=== PATIENT | male | born 1960 | race Caucasian/White ===

== ENCOUNTER 2017-01-17 07:07 | Inpatient (IN) | payer OTHER ==
[2017-01-18] MEDS ORDERED: NOREPINEPHRINE/NS 500 ML IV SCH (10:00)
[2017-01-18] MEDS ORDERED: NOREPINEPHRINE BITARTRATE 16 MG in NS 250 ML IV SCH (10:00)
[2017-01-18] MEDS: D5W 1/2 NS W/ 20 KCl/L 1,000 ML IV SCH ×2 (10:20→16:18)
[2017-01-18 10:21] LABS: ADD MORPH? NO; ADD SCAN? YES; ATYPICAL LYMPHOCYTE FLAG 0 (0-99); FRAGMENT RBC FLAG 0 (0-99); HEMATOCRIT 31.8 % (40.0-51.0); HEMOGLOBIN 10.7 g/dL (13.7-17.5); LIPEMIA HEMOLYSIS FLAG 80 (0-99); MEAN CELL HEMOGLOBIN 32.2 pg (27.9-34.1); MEAN CELL HEMOGLOBIN CONCENTR. 33.6 g/dL (32.4-36.7); MEAN CELL VOLUME 95.8 fL (81.5-99.8); MEAN PLATELET VOLUME 10.6 fL (8.7-11.7); PLATELET CLUMPS FLAG 10 (0-99); PLATELET COUNT 123 10^3/uL (150-400); RED BLOOD CELL COUNT 3.32 10^6/uL (4.40-6.38); RED CELL DISTRIBUTION WIDTH 13.4 % (11.5-15.2)
[2017-01-18 10:22] LABS: IONIZED CALCIUM 1.18 MMOL/L (1.12-1.30)
[2017-01-18 10:25] LABS: LEFT SHIFT FLG 160 (0-99)
[2017-01-18 10:33] LABS: ALANINE AMINOTRANSFERASE 36 IU/L (21-72); ALBUMIN 2.7 g/dL (3.5-5.0); ALKALINE PHOSPHATASE 52 IU/L (38-126); AMYLASE 418 IU/L (30-110); ANION GAP 9 mEq/L (8-16); ASPARTATE AMINOTRANSFERASE 53 IU/L (17-59); BILIRUBIN,TOTAL 0.6 mg/dL (0.1-1.4); BILIRUBIN-CONJUGATED 0.3 mg/dL (0.0-0.5); BILIRUBIN-UNCONJUGATED 0.3 mg/dL (0.0-1.1); CALCIUM 7.5 mg/dL (8.5-10.4); CARBON DIOXIDE 18 mEq/l (22-31); CHLORIDE 118 mEq/L (97-110); CREATININE 1.2 mg/dL (0.7-1.3); GAMMA-GLUTAMYLTRANSFERASE 24 IU/L (10-59); GLOMERULAR FILTRATION RATE > 60; GLUCOSE 153 mg/dL (70-100); LACTATE DEHYDROGENASE 918 IU/L (313-618); MAGNESIUM 1.8 mg/dL (1.6-2.3); POTASSIUM 4.1 mEq/L (3.5-5.2); SODIUM 145 mEq/L (134-144); TOTAL PROTEIN 4.7 g/dL (6.3-8.2)
[2017-01-18 10:43] LABS: INR 1.39 (0.83-1.16)
[2017-01-18 10:44] LABS: CK-MB INTERPRETATION NEGATIVE (NEGATIVE)
[2017-01-18] MEDS: PHENYLEPHRINE HCL 50 MG in D5W 250 ML IV SCH ×2 (10:50→16:18)
[2017-01-18 11:01] LABS: ADD DIFF? YES; SCAN POSITIVE
[2017-01-18 11:06] LABS: PLATELET ESTIMATE DECREASED (ADEQ); STOMATOCYTES 1+
--- NOTE | 2017-01-18 11:29 | CPEKG ---
Heart Rate: 92 RR Interval: 652 P-R Interval: 120 QRSD Interval: 96 QT Interval: 344 QTC Interval: 426 P [place]: 74 QRS [place]: 83 T Wave [place]: 79 EKG Severity - BORDERLINE ECG - EKG Impression: SINUS RHYTHM EKG Impression: PROBABLE LEFT ATRIAL ABNORMALITY EKG Impression: BORDERLINE T ABNORMALITIES, ANT-LAT LEADS Electronically Signed By: Gregorio Tyler 19-Jan-2017 23:00:53
--- NOTE | 2017-01-18 11:31 | POSTOPPROG ---
Post Op Note Date of Operation: 01/18/17 Surgeon: Gus Mccormack Anesthesiologist: none Anesthesia: Other (Specify) (none) Pre-op Diagnosis: Brain Post-op Diagnosis: same Indication: resuscitation Procedure: Femoral A Line, Femoral TLC Findings: good draw/flush TLC, good wave form A sun Inf/Abcess present in the surg proc area at time of surgery?: No
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
[2017-01-18] MEDS ORDERED: NS 500 ML IV ONE ×2 (12:00→13:00)
[2017-01-18 12:02] LABS: COLOR PALE YELLOW; LEUKOCYTE ESTERASE,URINE NEGATIVE (NEGATIVE); NITRITE,URINE NEGATIVE (NEGATIVE)
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
[2017-01-18] MEDS ORDERED: NALOXONE HCL 0.4 MG/ML INJ IVP ONE ×2 (12:30→13:15)
[2017-01-18] MEDS ORDERED: methylPREDNISolone SOD SUCC 2 GM in D5W 100 ML IV ONE (12:30)
[2017-01-18] MEDS ORDERED: VECURONIUM BROMIDE 10 MG VIAL IV ONE (12:30)
[2017-01-18] MEDS ORDERED: NS IVP ONE (13:00)
[2017-01-18] MEDS ORDERED: [UNRECOGNIZED DRUG - REMARK] MISC ONE (13:00)
[2017-01-18] MEDS ORDERED: INSULIN REGULAR HUMAN 100 UNIT/ML IV ONE (13:00)
[2017-01-18] MEDS ORDERED: LEVOTHYROXINE IVP ONE (13:00)
[2017-01-18] MEDS ORDERED: D50W 25 GM/50 ML SYR IVP ONE (13:00)
[2017-01-18] MEDS: LEVOTHYROXINE 200 MCG in NS 500 ML IV SCH ×2 (13:02→19:45)
[2017-01-18] MEDS: IPRATROPIUM/ALBUTEROL 3 ML DEYVIAL IH SCH ×5 (14:01→23:45)
[2017-01-18] MEDS: VASOPRESSIN/DEXTROSE 250 ML IV SCH ×2 (14:04→21:58)
[2017-01-18 15:23] LABS: % IMMATURE GRANULYOCYTES 0.3 % (0.0-1.1); ABSOLUTE IMMATURE GRANULOCYTES 0.02 10^3/uL (0.00-0.10); ADD DIFF? NO; ADD MORPH? NO; ADD SCAN? YES; ATYPICAL LYMPHOCYTE FLAG 0 (0-99); FRAGMENT RBC FLAG 0 (0-99); HEMATOCRIT 30.6 % (40.0-51.0); HEMOGLOBIN 10.3 g/dL (13.7-17.5); LIPEMIA HEMOLYSIS FLAG 80 (0-99); MEAN CELL HEMOGLOBIN CONCENTR. 33.7 g/dL (32.4-36.7); PLATELET CLUMPS FLAG 0 (0-99); PLATELET COUNT 96 10^3/uL (150-400); RED BLOOD CELL COUNT 3.22 10^6/uL (4.40-6.38); RED CELL DISTRIBUTION WIDTH 13.2 % (11.5-15.2)
[2017-01-18 15:31] LABS: LEFT SHIFT FLG 210 (0-99)
[2017-01-18 15:37] LABS: ALKALINE PHOSPHATASE 46 IU/L (38-126); ANION GAP 5 mEq/L (8-16); CALCIUM 7.8 mg/dL (8.5-10.4); CARBON DIOXIDE 18 mEq/l (22-31); CHLORIDE 120 mEq/L (97-110); GLOMERULAR FILTRATION RATE > 60; GLUCOSE 100 mg/dL (70-100); MAGNESIUM 1.8 mg/dL (1.6-2.3); POTASSIUM 3.7 mEq/L (3.5-5.2); SODIUM 143 mEq/L (134-144)
[2017-01-18 15:38] LABS: INR 1.39 (0.83-1.16)
[2017-01-18 15:39] LABS: APTT 30.8 SEC (23.0-38.0)
[2017-01-18 15:52] LABS: SCAN POSITIVE
[2017-01-18 15:56] LABS: PLATELET ESTIMATE DECREASED (ADEQ)
[2017-01-18 16:13] LABS: ALBUMIN 2.5 g/dL (3.5-5.0); BILIRUBIN,TOTAL 0.8 mg/dL (0.1-1.4); BILIRUBIN-CONJUGATED 0.4 mg/dL (0.0-0.5); BILIRUBIN-UNCONJUGATED 0.4 mg/dL (0.0-1.1); TOTAL PROTEIN 4.4 g/dL (6.3-8.2)
[2017-01-18] MEDS ORDERED: POTASSIUM Cl (KCl) 20 MEQ/50 ML BAG IV ONE (16:24)
[2017-01-18] MEDS ORDERED: POTASSIUM Cl (KCl) 50 ML IV ONE (16:30)
[2017-01-18] MEDS ORDERED: MAGNESIUM SULF 1 GM/DEXTROSE 100 ML IV ONE ×2 (16:30→23:00)
[2017-01-18] MEDS ORDERED: SODIUM PHOS 20 MM in D5W 250 ML IV ONE (16:30)
[2017-01-18 16:59] VITALS: RESP 20
[2017-01-18 21:34] LABS: IONIZED CALCIUM 1.18 MMOL/L (1.12-1.30)
[2017-01-18 21:37] LABS: ADD MORPH? NO; ATYPICAL LYMPHOCYTE FLAG 0 (0-99); FRAGMENT RBC FLAG 0 (0-99); HEMATOCRIT 28.6 % (40.0-51.0); HEMOGLOBIN 9.9 g/dL (13.7-17.5); LIPEMIA HEMOLYSIS FLAG 90 (0-99); MEAN CELL HEMOGLOBIN 32.2 pg (27.9-34.1); MEAN CELL HEMOGLOBIN CONCENTR. 34.6 g/dL (32.4-36.7); MEAN CELL VOLUME 93.2 fL (81.5-99.8); MEAN PLATELET VOLUME 11.2 fL (8.7-11.7); PLATELET CLUMPS FLAG 10 (0-99); PLATELET COUNT 88 10^3/uL (150-400); RED BLOOD CELL COUNT 3.07 10^6/uL (4.40-6.38); RED CELL DISTRIBUTION WIDTH 12.9 % (11.5-15.2)
[2017-01-18 21:39] LABS: ADD DIFF? YES; ADD SCAN? NO; LEFT SHIFT FLG 280 (0-99)
[2017-01-18 21:42] LABS: APTT 30.4 SEC (23.0-38.0); INR 1.53 (0.83-1.16); PROTIME(PATIENT) 18.4 SEC (12.0-15.0)
[2017-01-18 21:44] LABS: ALANINE AMINOTRANSFERASE 35 IU/L (21-72); ALBUMIN 2.4 g/dL (3.5-5.0); ALKALINE PHOSPHATASE 38 IU/L (38-126); ANION GAP 8 mEq/L (8-16); ASPARTATE AMINOTRANSFERASE 51 IU/L (17-59); BILIRUBIN,TOTAL 0.5 mg/dL (0.1-1.4); BILIRUBIN-CONJUGATED 0.2 mg/dL (0.0-0.5); BILIRUBIN-UNCONJUGATED 0.3 mg/dL (0.0-1.1); CALCIUM 7.9 mg/dL (8.5-10.4); CARBON DIOXIDE 17 mEq/l (22-31); CHLORIDE 112 mEq/L (97-110); CREATININE 0.9 mg/dL (0.7-1.3); GLOMERULAR FILTRATION RATE > 60; GLUCOSE 261 mg/dL (70-100); MAGNESIUM 1.8 mg/dL (1.6-2.3); POTASSIUM 4.3 mEq/L (3.5-5.2); SODIUM 137 mEq/L (134-144); TOTAL PROTEIN 4.7 g/dL (6.3-8.2)
[2017-01-18] MEDS: methylPREDNISolone SOD SUCC 1 GM in D5W 100 ML IV SCH (21:55)
[2017-01-18 22:19] LABS: COLOR YELLOW; LEUKOCYTE ESTERASE,URINE NEGATIVE (NEGATIVE); NITRITE,URINE NEGATIVE (NEGATIVE)
[2017-01-18 22:22] LABS: BACTERIA TRACE /hpf (NONE SEEN); MUCUS TRACE /lpf (NONE-1+); RBC,URINE 25-50 /hpf (0-3)
[2017-01-18 22:46] LABS: PLATELET ESTIMATE DECREASED (ADEQ)
[2017-01-18] MEDS ORDERED: INSULIN REGULAR HUMAN 100 UNIT/ML IVP ONE (23:00)
[2017-01-18] MEDS ORDERED: SODIUM PHOS IV ONE (23:00)
[2017-01-18] MEDS ORDERED: D5W IV ONE (23:00)
[2017-01-19] MEDS: LEVOTHYROXINE 200 MCG in NS 500 ML IV SCH ×3 (02:34→15:25)
[2017-01-19 03:26] LABS: IONIZED CALCIUM 1.15 MMOL/L (1.12-1.30)
[2017-01-19 03:38] LABS: INR 1.74 (0.83-1.16); PROTIME(PATIENT) 20.4 SEC (12.0-15.0)
[2017-01-19 03:39] LABS: ALANINE AMINOTRANSFERASE 39 IU/L (21-72); ALBUMIN 2.3 g/dL (3.5-5.0); ALKALINE PHOSPHATASE 37 IU/L (38-126); ANION GAP 7 mEq/L (8-16); APTT 30.4 SEC (23.0-38.0); ASPARTATE AMINOTRANSFERASE 41 IU/L (17-59); BILIRUBIN,TOTAL 0.8 mg/dL (0.1-1.4); BILIRUBIN-CONJUGATED 0.3 mg/dL (0.0-0.5); BILIRUBIN-UNCONJUGATED 0.5 mg/dL (0.0-1.1); CALCIUM 7.9 mg/dL (8.5-10.4); CARBON DIOXIDE 18 mEq/l (22-31); CHLORIDE 111 mEq/L (97-110); CREATININE 0.8 mg/dL (0.7-1.3); GLOMERULAR FILTRATION RATE > 60; GLUCOSE 250 mg/dL (70-100); SODIUM 136 mEq/L (134-144); TOTAL PROTEIN 4.5 g/dL (6.3-8.2)
[2017-01-19 03:41] LABS: ADD MORPH? NO; ADD SCAN? YES; ATYPICAL LYMPHOCYTE FLAG 0 (0-99); FRAGMENT RBC FLAG 0 (0-99); HEMATOCRIT 29.2 % (40.0-51.0); HEMOGLOBIN 10.1 g/dL (13.7-17.5); LEFT SHIFT FLG 190 (0-99); LIPEMIA HEMOLYSIS FLAG 90 (0-99); MEAN CELL HEMOGLOBIN 31.6 pg (27.9-34.1); MEAN CELL HEMOGLOBIN CONCENTR. 34.6 g/dL (32.4-36.7); MEAN CELL VOLUME 91.3 fL (81.5-99.8); MEAN PLATELET VOLUME 10.6 fL (8.7-11.7); PLATELET CLUMPS FLAG 0 (0-99); PLATELET COUNT 75 10^3/uL (150-400); RED CELL DISTRIBUTION WIDTH 13.2 % (11.5-15.2)
[2017-01-19 04:03] LABS: COLOR YELLOW; LEUKOCYTE ESTERASE,URINE NEGATIVE (NEGATIVE); NITRITE,URINE NEGATIVE (NEGATIVE)
[2017-01-19] MEDS: IPRATROPIUM/ALBUTEROL 3 ML DEYVIAL IH SCH ×5 (04:05→20:26)
[2017-01-19 04:07] LABS: BACTERIA TRACE /hpf (NONE SEEN); MUCUS TRACE /lpf (NONE-1+)
[2017-01-19 04:15] LABS: ADD DIFF? YES; SCAN POSITIVE
[2017-01-19 04:20] LABS: PLATELET ESTIMATE DECREASED (ADEQ)
[2017-01-19] MEDS: methylPREDNISolone SOD SUCC 1 GM in D5W 100 ML IV SCH ×2 (04:42→13:45)
[2017-01-19] MEDS ORDERED: INSULIN REGULAR HUMAN 100 UNIT/ML IV ONE ×2 (05:00→10:45)
[2017-01-19 09:09] LABS: IONIZED CALCIUM 1.11 MMOL/L (1.12-1.30)
[2017-01-19 09:11] LABS: ADD MORPH? NO; ADD SCAN? YES; ATYPICAL LYMPHOCYTE FLAG 0 (0-99); FRAGMENT RBC FLAG 0 (0-99); HEMATOCRIT 28.6 % (40.0-51.0); LIPEMIA HEMOLYSIS FLAG 90 (0-99); MEAN CELL HEMOGLOBIN 31.7 pg (27.9-34.1); MEAN CELL VOLUME 90.8 fL (81.5-99.8); MEAN PLATELET VOLUME 10.9 fL (8.7-11.7); PLATELET CLUMPS FLAG 10 (0-99); PLATELET COUNT 71 10^3/uL (150-400); RED BLOOD CELL COUNT 3.15 10^6/uL (4.40-6.38); RED CELL DISTRIBUTION WIDTH 13.6 % (11.5-15.2)
[2017-01-19 09:13] LABS: LEFT SHIFT FLG 190 (0-99)
[2017-01-19] MEDS: D5W 1/2 NS W/ 20 KCl/L 1,000 ML IV SCH (09:18)
[2017-01-19 09:28] LABS: ALANINE AMINOTRANSFERASE 30 IU/L (21-72); ALBUMIN 2.2 g/dL (3.5-5.0); ALKALINE PHOSPHATASE 39 IU/L (38-126); AMYLASE 195 IU/L (30-110); ANION GAP 8 mEq/L (8-16); ASPARTATE AMINOTRANSFERASE 33 IU/L (17-59); BILIRUBIN,TOTAL 0.9 mg/dL (0.1-1.4); BILIRUBIN-CONJUGATED 0.4 mg/dL (0.0-0.5); BILIRUBIN-UNCONJUGATED 0.5 mg/dL (0.0-1.1); CALCIUM 7.3 mg/dL (8.5-10.4); CARBON DIOXIDE 16 mEq/l (22-31); CHLORIDE 112 mEq/L (97-110); CREATININE 0.7 mg/dL (0.7-1.3); GLOMERULAR FILTRATION RATE > 60; GLUCOSE 255 mg/dL (70-100); MAGNESIUM 1.9 mg/dL (1.6-2.3); POTASSIUM 3.9 mEq/L (3.5-5.2); SODIUM 136 mEq/L (134-144); TOTAL PROTEIN 4.3 g/dL (6.3-8.2)
[2017-01-19 09:40] LABS: CK-MB INTERPRETATION POSITIVE (NEGATIVE)
[2017-01-19 09:47] LABS: ADD DIFF? YES; SCAN POSITIVE
[2017-01-19 09:51] LABS: PLATELET ESTIMATE DECREASED (ADEQ); SCHISTOCYTES 1+
[2017-01-19 09:57] LABS: INR 1.77 (0.83-1.16); PROTIME(PATIENT) 20.7 SEC (12.0-15.0)
[2017-01-19] MEDS: VASOPRESSIN/DEXTROSE 250 ML IV SCH ×2 (10:11→15:25)
[2017-01-19] MEDS ORDERED: POTASSIUM Cl (KCl) 100 ML IV ONE (10:30)
[2017-01-19] MEDS ORDERED: K PHOS 10 MMOL in D5W 250 ML IV ONE (10:30)
[2017-01-19] MEDS ORDERED: MAGNESIUM SULF 2 GM/WATER 50 ML IV ONE (10:30)
[2017-01-19] MEDS ORDERED: CALCIUM CHLORIDE 1 GM in D5W 50 ML IV ONE (11:00)
--- NOTE | 2017-01-19 12:20 | ECHO ---
[id number] + + [address] : : [place] [address] : : [phone] + + Adult Echocardiographic Report + + :Name: COTY ZAMARRIPA Study Date: 01/19/2017 09:41 AM : : Hospital Admission Number: [id number] : :: 1960 Gender: Male : :Age: 56 yrs Race: WH : :Reason For Study: Eval LV function : + + MMode/2D Measurements \T\ Calculations IVSd: 0.62 cm LVIDd: 4.7 cmEDV(Teich): 103.5 mlLVLd ap4: 7.8 cm LVPWd: 0.64 cm EDV(MOD-sp4): 73.0 ml LVLs ap4: 6.7 cm ESV(MOD-sp4): 40.0 ml EF(MOD-sp4): 45.2 % SV(MOD-sp4): 33.0 ml Normal Measurement Values: + + :LVIDd (3.5-5.7cm) IVSd (0.6-1.1cm) LVPWd (0.6-1.1cm) Aortic Root (2.0-3.7cm)Left Atrium (1.5-4.0cm): :LV Vol(d) (76-115ml) LV Vol(s) (29-48ml) Ejec Fraction (50-65%)PV Gabriel (0.6- 1.2m/s) TV Gabriel (0.4-1.0m/s) : :MV E Gabriel (0.8-1.0m/s)MV A Gabriel (0.3-1.0m/s)LVOT Gabriel (0.7-1.2m/s) Asc Ao Gabriel ( 0.9-1.8m/s) : + + Doppler Measurements \T\ Calculations MV E max gabriel: 53.8 cm/sec Ao mean P.8 mmHg TR max gabriel: 205.0 cm/sec MV A max gabriel: 63.7 cm/sec Ao V2 mean: 61.6 cm/sec TR max P.8 mmHg MV E/A: 0.84 Ao V2 VTI: 15.6 cm RAP systole: 5.0 mmHg RVSP(TR): 21.8 mmHg Left Ventricle The left ventricle is normal in size. Ejection Fraction = 40-45%. LV septal and inferior gutierrez are hypokinetic. Right Ventricle The right ventricle is normal size. The right ventricular systolic function is normal. Atria The left atrial size is normal. Right atrial size is normal. Mitral Valve The mitral valve is normal. There is trace mitral regurgitation. Tricuspid Valve Normal tricuspid valve. There is mild tricuspid regurgitation. Right ventricular systolic pressure is 22mmHg. Right ventricular systolic pressure is normal. Aortic Valve The aortic valve is not well visualized. There is no aortic stenosis. There is no aortic insufficiency. Pulmonic Valve The pulmonic valve is not well visualized. Great Vessels The aortic root is normal size. Pericardium/Pleural Trivial anterior pericardial effusion. Conclusion A complete two-dimensional transthoracic echocardiogram was performed (2D, M-mode, Doppler and color flow Doppler). The study was technically difficult. Ejection Fraction = 40-45%. LV septal and inferior gutierrez are hypokinetic There is trace mitral regurgitation. There is mild tricuspid regurgitation. Right ventricular systolic pressure is 22mmHg. Trivial anterior pericardial effusion Final Reading Physician: Dr Juana Castro electronically signed on 01/19/2017 12:20 PM Ordering Physician: Vinny Carr Performed By: Micaela Gold, RAECS
[2017-01-19] MEDS: PIPERACILLIN/TAZO 3.375 GM/DEX 50 ML IV SCH ×2 (13:03→18:28)
[2017-01-19 15:29] LABS: ADD MORPH? NO; ATYPICAL LYMPHOCYTE FLAG 0 (0-99); FRAGMENT RBC FLAG 0 (0-99); HEMATOCRIT 27.3 % (40.0-51.0); HEMOGLOBIN 9.7 g/dL (13.7-17.5); IONIZED CALCIUM 1.18 MMOL/L (1.12-1.30); LIPEMIA HEMOLYSIS FLAG 90 (0-99); MEAN CELL HEMOGLOBIN 31.9 pg (27.9-34.1); MEAN CELL HEMOGLOBIN CONCENTR. 35.5 g/dL (32.4-36.7); MEAN CELL VOLUME 89.8 fL (81.5-99.8); MEAN PLATELET VOLUME 11.6 fL (8.7-11.7); PLATELET CLUMPS FLAG 10 (0-99); PLATELET COUNT 69 10^3/uL (150-400); RED BLOOD CELL COUNT 3.04 10^6/uL (4.40-6.38); RED CELL DISTRIBUTION WIDTH 13.9 % (11.5-15.2)
[2017-01-19 15:31] LABS: ADD DIFF? YES; ADD SCAN? NO; LEFT SHIFT FLG 140 (0-99)
[2017-01-19 15:35] LABS: COLOR YELLOW; LEUKOCYTE ESTERASE,URINE NEGATIVE (NEGATIVE); NITRITE,URINE NEGATIVE (NEGATIVE)
[2017-01-19 15:37] LABS: MUCUS TRACE /lpf (NONE-1+)
[2017-01-19 15:39] LABS: ALANINE AMINOTRANSFERASE 35 IU/L (21-72); ALBUMIN 2.4 g/dL (3.5-5.0); ALKALINE PHOSPHATASE 40 IU/L (38-126); ANION GAP 8 mEq/L (8-16); ASPARTATE AMINOTRANSFERASE 29 IU/L (17-59); BILIRUBIN,TOTAL 0.9 mg/dL (0.1-1.4); BILIRUBIN-CONJUGATED 0.4 mg/dL (0.0-0.5); BILIRUBIN-UNCONJUGATED 0.5 mg/dL (0.0-1.1); CARBON DIOXIDE 17 mEq/l (22-31); CHLORIDE 110 mEq/L (97-110); CREATININE 0.7 mg/dL (0.7-1.3); GLOMERULAR FILTRATION RATE > 60; GLUCOSE 247 mg/dL (70-100); MAGNESIUM 2.1 mg/dL (1.6-2.3); POTASSIUM 4.2 mEq/L (3.5-5.2); SODIUM 135 mEq/L (134-144); TOTAL PROTEIN 4.5 g/dL (6.3-8.2)
[2017-01-19 16:07] LABS: APTT 28.6 SEC (23.0-38.0); INR 1.61 (0.83-1.16); PROTIME(PATIENT) 19.2 SEC (12.0-15.0)
[2017-01-19 16:22] LABS: PLATELET ESTIMATE DECREASED (ADEQ)
--- NOTE | 2017-01-19 16:55 | ECHO ---
[id number] + + [address] : : [place] [address] : : [phone] + + Adult Echocardiographic Report + ----+ :Name: COTY ZAMARRIPA Date: 01/19/2017 03:59 PM : : Hospital Admission Number: [id number] Location: 252: :: 1960 Gender: Male : :Age: 56 yrs Race: WH : :Reason For Study: Eval LV function : + ----+ MMode/2D Measurements \T\ Calculations IVSd: 0.64 cm LVIDd: 5.5 cm EDV(Teich): Ao root diam: LVPWd: 0.98 cm 146.6 ml 3.0 cm LA dimension: 3.4 cm LVLd ap4: 8.2 cm SV(MOD-sp4): EDV(MOD-sp4): 38.0 ml 86.0 ml LVLs ap4: 7.2 cm ESV(MOD-sp4): 48.0 ml EF(MOD-sp4): 44.2 % Normal Measurement Values: + + :LVIDd (3.5-5.7cm) IVSd (0.6-1.1cm) LVPWd (0.6-1.1cm) Aortic Root (2.0-3.7cm)Left Atrium (1.5-4.0cm): :LV Vol(d) (76-115ml) LV Vol(s) (29-48ml) Ejec Fraction (50-65%)PV Gabriel (0.6- 1.2m/s) TV Gabriel (0.4-1.0m/s) : :MV E Gabriel (0.8-1.0m/s)MV A Gabriel (0.3-1.0m/s)LVOT Gabriel (0.7-1.2m/s) Asc Ao Gabriel ( 0.9-1.8m/s) : + + Doppler Measurements \T\ Calculations MV E max gabreil: 68.6 cm/sec Ao mean P.7 mmHg TR max gabriel: 221.3 cm/sec MV A max gabriel: 72.6 cm/sec Ao V2 mean: 76.4 cm/sec TR max P.6 mmHg MV E/A: 0.95 Ao V2 VTI: 21.2 cm RAP systole: 5.0 mmHg RVSP(TR): 24.6 mmHg Left Ventricle The left ventricle is normal in size. Ejection Fraction = 40-45%. LV septal and inferior gutierrez are hypokinetic. Right Ventricle The right ventricle is normal size. Atria The left atrial size is normal. Right atrium not well visualized. Mitral Valve The mitral valve is normal. There is trace mitral regurgitation. Tricuspid Valve Normal tricuspid valve. There is mild tricuspid regurgitation. Right ventricular systolic pressure is normal. Right ventricular systolic pressure is 25mmHg. Aortic Valve The aortic valve opens well. There is no aortic insufficiency. Pulmonic Valve The pulmonic valve is not well visualized. Great Vessels The aortic root is normal size. Pericardium/Pleural Trivial anterior pericardial effusion. Conclusion A complete two-dimensional transthoracic echocardiogram was performed (2D, M-mode, Doppler and color flow Doppler). Ejection Fraction = 40-45%. LV septal and inferior gutierrez are hypokinetic. There is trace mitral regurgitation. There is mild tricuspid regurgitation. Right ventricular systolic pressure is normal. Right ventricular systolic pressure is 25mmHg. Trivial anterior pericardial effusion No change compared with 01/19/2017 at 9 am. Final Reading Physician: Dr Juana Castro electronically signed on 01/19/2017 04:54 PM Ordering Physician: Vinny Carr Performed By: Micaela Gold RDCS
[2017-01-19 20:13] VITALS: BP 103/58; PULSE 88; TEMP 97.7; O2SAT 100
== END 2017-01-19 21:00 | disposition expired | DRG 24 ==
LOC: EEVIPCON 07:07 → F2N 07:07 → UNDOADMIN 07:07 → F2N 01-18 07:07 → UNDODISIN 01-19 21:00
PROVIDERS: ADMIT Surgery; ATTEND Surgery
PROC: 04HK33Z Insertion of Infusion Device into Right Femoral Artery, Percutaneous Approach (ICD-10-PCS; principal; 2017-01-18)
PROC: 06HN33Z Insertion of Infusion Device into Left Femoral Vein, Percutaneous Approach (ICD-10-PCS; principal; 2017-01-18)
PROC: 00963ZZ Drainage of Cerebral Ventricle, Percutaneous Approach (ICD-10-PCS; principal; 2017-01-18)
PROC: 30233N1 Transfusion of Nonautologous Red Blood Cells into Peripheral Vein, Percutaneous Approach (ICD-10-PCS; 2017-01-18)
DX: S02.19XA Other fracture of base of skull, initial encounter for closed fracture; V29.9XXA Motorcycle rider (driver) (passenger) injured in unspecified traffic accident, initial encounter
CPT/HCPCS: J0690; J1265; J1815; J2310; J2370; J2543; J2930; J3475; P9016; P9040

== ENCOUNTER 2017-01-17 20:04 | Inpatient (IN) | payer OTHER ==
[2017-01-17] MEDS ORDERED: MANNITOL 20% 100 GM/500 ML BAG IV ONE ×3 (20:11→22:27)
[2017-01-17] MEDS ORDERED: CEFAZOLIN 1 GM/DEXTROSE/50 ML BAG IV ONE (20:14)
[2017-01-17] MEDS ORDERED: ceFAZolin 1 GM in NS 100 ML IV ONE (20:20)
[2017-01-17] MEDS ORDERED: levETIRAcetam 1,000 MG in NS 100 ML IV ONE (20:35)
[2017-01-17] MEDS ORDERED: TRANEXAMIC ACID 1,000 MG in NS 500 ML IV ONE (20:45)
[2017-01-17] MEDS ORDERED: TRANEXAMIC ACID 1,000 MG in NS 100 ML IV ONE (20:45)
[2017-01-17] MEDS ORDERED: TRANEXAMIC ACID 1,000 MG/10 ML VIAL ONE (20:45)
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
[2017-01-17] MEDS ORDERED: NS 100 ML BAG IV ONE (20:49)
[2017-01-17 21:13] LABS: BASE EXCESS -8.2 mEq/L (-2.5-2.5); BICARBONATE 19 mEq/L (22-26); MEASURED OXYGEN SATURATION 99 % (92-95); PCO2 46 mmHg (34-38); PO2 171 mmHg (65-75); TCO2 20 mEq/L (23-27)
[2017-01-17] MEDS ORDERED: NALOXONE HCL 0.4 MG/ML INJ IVP PRN (21:14)
[2017-01-17] MEDS ORDERED: ONDANSETRON 4 MG/2 ML VIAL IVP PRN (21:14)
[2017-01-17 21:15] LABS: END TIDAL CO2 28; O2 CONCENTRATIION 100 % (0-100); P/F RATIO 171 RATIO; PATIENT RATE 14; PRESSURE SUPPORT 7
[2017-01-17] MEDS ORDERED: SUCCINYLCHOLINE CHLORIDE 200 MG/10 ML VIAL IVP ONE (21:20)
[2017-01-17] MEDS ORDERED: ETOMIDATE 20 MG/10 ML VIAL IVP ONE (21:20)
[2017-01-17 21:22] LABS: APTT 32.1 SEC (23.0-38.0); INR 1.13 (0.83-1.16); PROTIME(PATIENT) 14.4 SEC (12.0-15.0)
[2017-01-17 21:25] LABS: ANION GAP 17 mEq/L (8-16); CALCIUM 9.7 mg/dL (8.5-10.4); CARBON DIOXIDE 19 mEq/l (22-31); CHLORIDE 107 mEq/L (97-110); CREATININE 0.9 mg/dL (0.7-1.3); ETHANOL SERUM 42 mg/dL (0-10); GLOMERULAR FILTRATION RATE > 60; GLUCOSE 131 mg/dL (70-100); SODIUM 143 mEq/L (134-144)
[2017-01-17] MEDS ORDERED: PROPOFOL/EMULSION 100 ML IV SCH ×2 (21:30→23:00)
[2017-01-17 21:40] LABS: % IMMATURE GRANULYOCYTES 0.3 % (0.0-1.1); ABSOLUTE IMMATURE GRANULOCYTES 0.03 10^3/uL (0.00-0.10); ADD DIFF? NO; ADD MORPH? NO; ADD SCAN? NO; ATYPICAL LYMPHOCYTE FLAG 0 (0-99); FRAGMENT RBC FLAG 0 (0-99); HEMATOCRIT 44.4 % (40.0-51.0); HEMOGLOBIN 14.9 g/dL (13.7-17.5); LEFT SHIFT FLG 0 (0-99); LIPEMIA HEMOLYSIS FLAG 80 (0-99); MEAN CELL HEMOGLOBIN CONCENTR. 33.6 g/dL (32.4-36.7); MEAN CELL VOLUME 95.5 fL (81.5-99.8); MEAN PLATELET VOLUME 11.4 fL (8.7-11.7); PLATELET CLUMPS FLAG 0 (0-99); PLATELET COUNT 212 10^3/uL (150-400); RED BLOOD CELL COUNT 4.65 10^6/uL (4.40-6.38); RED CELL DISTRIBUTION WIDTH 12.9 % (11.5-15.2)
[2017-01-17] MEDS ORDERED: IOPAMIDOL (ISOVUE 370) 100 ML BTL IV ONE (21:43)
[2017-01-17] MEDS ORDERED: PHENYLEPHRINE 10 MG/ML SDV ONE (21:52)
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
[2017-01-17] MEDS ORDERED: PHENYLEPHRINE HCL 50 MG in D5W 250 ML IV SCH (22:00)
[2017-01-17] MEDS ORDERED: PHENYLEPHRINE HCL 100 MCG/ML SYR IVP ONE (23:09)
[2017-01-17] MEDS: NS W/ 20 KCl/L 1,000 ML IV SCH (23:30)
[2017-01-17 23:42] LABS: BICARBONATE 21 mEq/L (22-26); MEASURED OXYGEN SATURATION 98 % (92-95); PCO2 42 mmHg (34-38); PO2 129 mmHg (65-75); TCO2 22 mEq/L (23-27)
[2017-01-17 23:44] LABS: END TIDAL CO2 33; O2 CONCENTRATIION 80 % (0-100); P/F RATIO 161 RATIO; PATIENT RATE 18; PRESSURE SUPPORT 7; SIMV YES
[2017-01-18 01:29] LABS: % IMMATURE GRANULYOCYTES 0.3 % (0.0-1.1); ABSOLUTE IMMATURE GRANULOCYTES 0.03 10^3/uL (0.00-0.10); ADD DIFF? NO; ADD MORPH? NO; ADD SCAN? NO; ATYPICAL LYMPHOCYTE FLAG 0 (0-99); FRAGMENT RBC FLAG 0 (0-99); HEMATOCRIT 37.9 % (40.0-51.0); LEFT SHIFT FLG 30 (0-99); LIPEMIA HEMOLYSIS FLAG 90 (0-99); MEAN CELL HEMOGLOBIN 32.3 pg (27.9-34.1); MEAN CELL HEMOGLOBIN CONCENTR. 34.3 g/dL (32.4-36.7); MEAN PLATELET VOLUME 10.7 fL (8.7-11.7); PLATELET CLUMPS FLAG 0 (0-99); PLATELET COUNT 169 10^3/uL (150-400); RED BLOOD CELL COUNT 4.03 10^6/uL (4.40-6.38); RED CELL DISTRIBUTION WIDTH 13.1 % (11.5-15.2)
[2017-01-18 01:33] LABS: ALANINE AMINOTRANSFERASE 42 IU/L (21-72); ALBUMIN 3.5 g/dL (3.5-5.0); ALKALINE PHOSPHATASE 64 IU/L (38-126); ANION GAP 10 mEq/L (8-16); ASPARTATE AMINOTRANSFERASE 58 IU/L (17-59); BILIRUBIN,TOTAL 1.3 mg/dL (0.1-1.4); CARBON DIOXIDE 20 mEq/l (22-31); CHLORIDE 111 mEq/L (97-110); GLOMERULAR FILTRATION RATE > 60; GLUCOSE 103 mg/dL (70-100); POTASSIUM 4.1 mEq/L (3.5-5.2); SODIUM 141 mEq/L (134-144); TOTAL PROTEIN 6.1 g/dL (6.3-8.2)
[2017-01-18 02:25] LABS: BASE EXCESS -4.7 mEq/L (-2.5-2.5); BICARBONATE 20 mEq/L (22-26); MEASURED OXYGEN SATURATION 98 % (92-95); PCO2 38 mmHg (34-38); PO2 127 mmHg (65-75); TCO2 21 mEq/L (23-27)
[2017-01-18 02:27] LABS: END TIDAL CO2 28; O2 CONCENTRATIION 60 % (0-100); P/F RATIO 212 RATIO; PATIENT RATE 20; PRESSURE SUPPORT 7; SIMV YES
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
[2017-01-18] MEDS ORDERED: VASOPRESSIN/DEXTROSE 250 ML IV PRN (04:00)
[2017-01-18] MEDS: NOREPINEPHRINE/NS 500 ML IV PRN ×2 (05:40→08:21)
[2017-01-18 05:51] LABS: BASE EXCESS -4.6 mEq/L (-2.5-2.5); BICARBONATE 18 mEq/L (22-26); MEASURED OXYGEN SATURATION 95 % (92-95); PCO2 30 mmHg (34-38); PO2 81 mmHg (65-75); TCO2 19 mEq/L (23-27)
[2017-01-18 05:53] LABS: END TIDAL CO2 22; O2 CONCENTRATIION 40 % (0-100); P/F RATIO 203 RATIO; PATIENT RATE 22; PRESSURE SUPPORT 7; SIMV YES
[2017-01-18 05:58] LABS: ANION GAP 10 mEq/L (8-16); CALCIUM 8.7 mg/dL (8.5-10.4); CARBON DIOXIDE 18 mEq/l (22-31); CHLORIDE 116 mEq/L (97-110); CREATININE 1.3 mg/dL (0.7-1.3); GLOMERULAR FILTRATION RATE 58; GLUCOSE 121 mg/dL (70-100); POTASSIUM 4.2 mEq/L (3.5-5.2); SODIUM 144 mEq/L (134-144)
[2017-01-18 06:28] LABS: BASE EXCESS -5.6 mEq/L (-2.5-2.5); BICARBONATE 18 mEq/L (22-26); MEASURED OXYGEN SATURATION 92 % (92-95); PCO2 35 mmHg (34-38); PO2 72 mmHg (65-75); TCO2 19 mEq/L (23-27)
[2017-01-18 06:30] LABS: END TIDAL CO2 30; O2 CONCENTRATIION 40 % (0-100); P/F RATIO 180 RATIO; PATIENT RATE 16; PRESSURE SUPPORT 7; SIMV YES
[2017-01-18] MEDS ORDERED: MANNITOL 20% 250 ML IV ONE (06:30)
[2017-01-18] MEDS ORDERED: DOPamine/DEXTROSE/250 ML BAG IV ONE (06:41)
[2017-01-18 07:02] LABS: BASE EXCESS -9.3 mEq/L (-2.5-2.5); BICARBONATE 21 mEq/L (22-26); MEASURED OXYGEN SATURATION 96 % (92-95); PO2 123 mmHg (65-75); TCO2 24 mEq/L (23-27)
[2017-01-18 07:07] LABS: PCO2 77 mmHg (34-38)
[2017-01-18 07:10] VITALS: RESP 16
[2017-01-18 07:23] VITALS: O2SAT 100
[2017-01-18 07:50] VITALS: TEMP 98.2
--- NOTE | 2017-01-18 08:03 | SOAPPROG ---
SOAP Progress Note Assessment/Plan: Brain Declaration - No response to painful or verbal stimuli - No corneal reflex - No cough with tracheal stimulation - No oculovestibular reflex - Apnea test performed, no breathing identified, starting pCO2 35, ending pCO2 after 10 mins 77 - Brain declared at 0706. [facility] paperwork completed: 01/18/17 08:00 Objective: Vital Signs Temp Pulse Resp BP Pulse Ox 36.8 C 92 16 97/56 L 100 01/18/17 07:48 01/18/17 07:48 01/18/17 07:48 01/18/17 07:48 01/18/17 07:48 Laboratory Results 01/18/17 00:45 01/18/17 05:20 01/17/17 01/18/17 01/19/17 05:59 05:59 05:59 Intake Total 1387 Output Total 3595 125 Balance -2208 -125 PT 14.4 SEC (12.0-15.0) 01/17/17 19:50 INR 1.13 (0.83-1.16) 01/17/17 19:50 ICD10 Worksheet Patient Problems: Problems Problem Status Onset Basilar skull fracture Acute Head injury Acute Subarachnoid hemorrhage Acute Traumatic brain injury Acute
[2017-01-18 08:18] VITALS: BP 100/63; PULSE 90
[2017-01-18] MEDS: NS W/ 20 KCl/L 1,000 ML IV SCH (08:21)
[2017-01-18] MEDS ORDERED: FAMOTIDINE 20 MG/NACL 50 ML IV SCH (09:00)
[2017-01-18] MEDS ORDERED: levETIRAcetam 1,000 MG in NS 100 ML IV SCH (09:00)
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
== END 2017-01-18 07:06 | disposition expired | DRG 955 ==
LOC: EDUNIT# → F2N 22:30 → UNDODISIN 01-18 07:06
PROVIDERS: ADMIT Surgery; ATTEND Surgery
PROC: 009630Z Drainage of Cerebral Ventricle with Drainage Device, Percutaneous Approach (ICD-10-PCS; principal; 2017-01-17)
PROC: 0BH18EZ Insertion of Endotracheal Airway into Trachea, Via Natural or Artificial Opening Endoscopic (ICD-10-PCS; 2017-01-17)
PROC: 5A1935Z Respiratory Ventilation, Less than 24 Consecutive Hours (ICD-10-PCS; 2017-01-17)
DX: S15.109A Unspecified injury of unspecified vertebral artery, initial encounter; S02.113A Unspecified occipital condyle fracture, initial encounter for closed fracture; R40.2432 Glasgow coma scale score 3-8, at arrival to emergency department; S37.011A Minor contusion of right kidney, initial encounter; V28.4XXA Motorcycle driver injured in noncollision transport accident in traffic accident, initial encounter; Y92.411 Interstate highway as the place of occurrence of the external cause
CPT/HCPCS: 80305; 82947-QW; 96374; G0480; J0330; J0690; J1265; J1953; J2370; L0120; Q9967